=== PATIENT | female | born 1965 | race Caucasian/White ===

== ENCOUNTER 2024-05-30 18:31 | Emergency (ER) | payer SELFPAY ==
[~2024-05-30] VITALS: Ht 170.2 cm; Wt 59.0 kg
[2024-05-30 18:33] VITALS: O2SAT 99
[2024-05-30] MEDS: MORPHINE SULFATE 4 MG/ML INJ (FOR IV/IM USE) IM ONE (23:03)
[2024-05-31] VITALS: BP 158/83; PULSE 77; RESP 18; TEMP 36.61404; O2SAT 100
[2024-05-31] MEDS: METOCLOPRAMIDE HCL 10MG TABLET PO ONE (00:48)
== END 2024-05-31 01:00 | disposition home or self-care (01) ==
LOC: ER 18:31
DX: S09.90XA Unspecified injury of head, initial encounter (principal); W22.8XXA Striking against or struck by other objects, initial encounter; Y93.89 Activity, other specified; Y92.89 Other specified places as the place of occurrence of the external cause; Y99.8 Other external cause status
CPT/HCPCS: 99285; 70450; 96372; J2270; J8597